=== PATIENT | female | born 1970 | race Caucasian/White ===

== ENCOUNTER → 2018-03-22 | Outpatient (CLI) | payer OTHER ==
[~2018-03-22] MED LIST: ESCI10 PO; NAPR500 PO; YAZ
== END | disposition home or self-care (01) ==
LOC: PLD 13:51 → LAB SHORT 13:51
DX: D48.5 Neoplasm of uncertain behavior of skin (principal)
CPT/HCPCS: 88305

== ENCOUNTER → 2020-03-28 | Outpatient (CLI) | payer OTHER | END | disposition home or self-care (01) | LOC: PLD 08:31 → LAB SHORT 08:31 | DX: D22.5 Melanocytic nevi of trunk (principal) | CPT/HCPCS: 88305 ==